=== PATIENT | male | born 1950 | race Caucasian/White ===

== ENCOUNTER 2017-04-18 10:54 | Emergency (ER) | payer OTHER ==
[~2017-04-18] VITALS: Ht 170.2 cm; Wt 77.1 kg
[~2017-04-18 10:54] MED LIST: ALBU90OI; ALBU90OI INH; ALBU90OI6; ALBU90OI6 INH; AMLO5; ASPI325; ASPI81CH PO; ASPI81EC PO; ATOR10; ATOR80 PO; AZIT250 PO; Adult Low Dose81 MG PO; CEPH500 PO; CIPR500 PO; CITA20; CLOP75; CLOP75 PO; CODACE30 PO; Crestor20 MG PO; DOXA2 PO; DOXA4 PO; ERYT.5TO LEFTEYE; FINA5 PO; FISH1000 PO; GABA300 PO; GEMF600 PO; HYDACE5; HYDACE5 PO; HYDACE5325 PO; IBUP800; IRON PO; IRON150C PO; LAMI150 PO; LAMZIDT PO; LANS15EC PO; METF500; METO25 PO; METO25ER PO; METO50 PO; METO50ER; METO50ER PO; MULVITMINF PO; NADO20; Norco 5-325 Ta1 EACH PO; OMEP20ER PO; OXYACE5T PO; OXYACEL PO; PANT40 PO; PRAV20; PRAV20 PO; PROCODE120 PO; PROM25; PROM25 PO; Prednisone20 MG PO; RANI150 PO; RITLOP; RITLOP PO; ROSU10TA PO; RXHYD5325 PO; TEMA15; TRIUMEQ TABLET1 EACH PO; Vibramycin100 MG PO; WARF1; WARF10 PO; WARF4 PO; WARF5; WARF5 PO; WARF7.5 PO; WARF7.5 UD; ZOLP10 PO; Zithromax250 MG PO; [UNRECOGNIZED DRUG - OTHER] PO; [UNRECOGNIZED DRUG - REMARK]
[2017-04-18] MEDS ORDERED: ROSU5 PO (11:18)
[2017-04-18] MEDS ORDERED: ASPI81CH PO (11:19)
[2017-04-18 11:23] LABS: BASOPHILS ABSOLUTE AUTO 0.03 K/mm3 (0.00-0.23); BASOPHILS PERCENT AUTO 1 % (0-2); EOSINOPHILS ABSOLUTE AUTO 0.12 K/mm3 (0.00-0.68); EOSINOPHILS PERCENT AUTO 3 % (0-6); Hematocrit 46.1 % (37.0-53.0); Hemoglobin 16.2 g/dL (13.5-17.5); IMMATURE GRAN ABSOLUTE AUTO 0.01 K/mm3 (0.00-0.10); IMMATURE GRAN PERCENT AUTO 0 % (0-1); LYMPHOCYTES ABSOLUTE AUTO 1.04 K/mm3 (0.84-5.20); LYMPHOCYTES PERCENT AUTO 24 % (21-46); MONOCYTES PERCENT AUTO 14 % (4-13); Mean Corpuscular HGB 32.2 pg (26.0-34.0); Mean Corpuscular HGB Conc 35.1 g/dL (31.5-36.5); Mean Corpuscular Volume 92 fL (80-100); Mean Platelet Volume 9.9 fL (9.1-12.4); NEUTROPHILS ABSOLUTE AUTO 2.63 K/mm3 (1.96-9.15); NEUTROPHILS PERCENT AUTO 59 % (41-73); Platelet Count 132 K/mm3 (150-400); RDW Coefficient Variation 12.2 % (11.7-14.2); Red Blood Cell Count 5.03 M/mm3 (4.30-5.90); White Blood Cell Count 4.43 K/mm3 (4.00-11.30)
[2017-04-18 11:42] LABS: Alanine Aminotransfer (ALT/SGP 24 U/L (12-78); Albumin, Blood 4.2 g/dL (3.4-5.0); Albumin/Globulin Ratio 1.2 (0.8-1.8); Alk Phos 74 U/L (50-136); Anion Gap 11 mmol/L (6-16); Aspartate Aminotrans (AST/SGOT 37 U/L (12-37); Bilirubin, Total 0.6 mg/dL (0.1-1.0); Blood Urea Nitrogen 14 mg/dL (8-24); Bun/Creatinine Ratio 14.2 (12.0-20.0); CO2, Blood 24 mmol/L (21-32); Chloride, Blood 105 mmol/L (98-108); Creatinine, Blood 0.99 mg/dL (0.60-1.20); Globulin, Blood 3.5 g/dL (2.2-4.0); Glomerular Filtration Rate >60 (60-); Glucose, Blood 115 mg/dL (70-99); Potassium, Blood 3.4 mmol/L (3.5-5.5); Sodium, Blood 140 mmol/L (136-145); Total Protein, Blood 7.7 g/dL (6.4-8.2); Troponin I <0.015 ng/mL (0.000-0.040)
[2017-04-18] MEDS ORDERED: Doxycycline Hy100 MG PO (12:12)
[2017-12-06] MEDS ORDERED: TRIUMEQ TABLET1 EACH PO (18:43)
[2017-12-06] MEDS ORDERED: Coumadin5 MG PO (22:42)
[2017-12-07] MEDS ORDERED: ALBU90OI6 INH (13:01)
== END 2017-04-18 12:52 | disposition home or self-care (01) ==
LOC: ER 10:54
PROVIDERS: Emergency Medicine
DX: J44.1 Chronic obstructive pulmonary disease with (acute) exacerbation (principal); I25.2 Old myocardial infarction; I10 Essential (primary) hypertension; E11.9 Type 2 diabetes mellitus without complications; I48.91 Unspecified atrial fibrillation; Z88.2 Allergy status to sulfonamides; Z88.8 Allergy status to other drugs, medicaments and biological substances; Z79.01 Long term (current) use of anticoagulants; Z79.82 Long term (current) use of aspirin; Z90.49 Acquired absence of other specified parts of digestive tract; Z95.1 Presence of aortocoronary bypass graft
CPT/HCPCS: 36415; 71046; 80053; 84484; 85025; 93005; 93010; 99284

== ENCOUNTER 2017-05-30 20:44 | Emergency (ER) | payer OTHER ==
[~2017-05-30] VITALS: Ht 170.2 cm; Wt 74.8 kg
[~2017-05-30 20:44] MED LIST changes: +Doxycycline Hy100 MG PO; +ROSU5 PO
[2017-12-06] MEDS ORDERED: TRIUMEQ TABLET1 EACH PO (18:43)
[2017-12-06] MEDS ORDERED: Coumadin5 MG PO (22:42)
[2017-12-07] MEDS ORDERED: ALBU90OI6 INH (13:01)
== END 2017-05-30 22:00 | disposition home or self-care (01) ==
LOC: ER 20:44
DX: M25.461 Effusion, right knee (principal); I25.2 Old myocardial infarction; I10 Essential (primary) hypertension; E11.9 Type 2 diabetes mellitus without complications; I48.91 Unspecified atrial fibrillation; F17.210 Nicotine dependence, cigarettes, uncomplicated; Z88.2 Allergy status to sulfonamides; Z88.8 Allergy status to other drugs, medicaments and biological substances; Z79.899 Other long term (current) drug therapy; Z79.01 Long term (current) use of anticoagulants; Z79.82 Long term (current) use of aspirin; X58.XXXA Exposure to other specified factors, initial encounter; Y93.64 Activity, baseball
CPT/HCPCS: 73562-LT; 99283

== ENCOUNTER 2018-03-19 11:21 | Emergency (ER) | payer OTHER ==
[~2018-03-19] VITALS: Ht 170.2 cm; Wt 77.1 kg
[~2018-03-19 11:21] MED LIST changes: +Coumadin5 MG PO
[2018-03-19 12:06] LABS: BASOPHILS ABSOLUTE AUTO 0.03 K/mm3 (0.00-0.23); BASOPHILS PERCENT AUTO 0 % (0-2); EOSINOPHILS ABSOLUTE AUTO 0.05 K/mm3 (0.00-0.68); EOSINOPHILS PERCENT AUTO 1 % (0-6); Hematocrit 45.5 % (37.0-53.0); Hemoglobin 15.8 g/dL (13.5-17.5); IMMATURE GRAN ABSOLUTE AUTO 0.03 K/mm3 (0.00-0.10); IMMATURE GRAN PERCENT AUTO 0 % (0-1); LYMPHOCYTES ABSOLUTE AUTO 1.11 K/mm3 (0.84-5.20); LYMPHOCYTES PERCENT AUTO 13 % (21-46); MONOCYTES ABSOLUTE AUTO 0.75 K/mm3 (0.16-1.47); MONOCYTES PERCENT AUTO 9 % (4-13); Mean Corpuscular HGB 32.8 pg (26.0-34.0); Mean Corpuscular HGB Conc 34.7 g/dL (31.5-36.5); Mean Corpuscular Volume 94 fL (80-100); Mean Platelet Volume 9.7 fL (9.1-12.4); NEUTROPHILS PERCENT AUTO 77 % (41-73); Platelet Count 131 K/mm3 (150-400); Red Blood Cell Count 4.82 M/mm3 (4.30-5.90); White Blood Cell Count 8.67 K/mm3 (4.00-11.30)
[2018-03-19 12:23] LABS: Alanine Aminotransfer (ALT/SGP 14 U/L (12-78); Albumin, Blood 3.8 g/dL (3.4-5.0); Albumin/Globulin Ratio 1.1 (0.8-1.8); Alk Phos 72 U/L (50-136); Anion Gap 9 mmol/L (6-16); Aspartate Aminotrans (AST/SGOT 17 U/L (12-37); Bilirubin, Total 0.8 mg/dL (0.1-1.0); Blood Urea Nitrogen 13 mg/dL (8-24); Bun/Creatinine Ratio 14.5 (12.0-20.0); CO2, Blood 25 mmol/L (21-32); Calcium, Blood 9.1 mg/dL (8.5-10.1); Chloride, Blood 105 mmol/L (98-108); Globulin, Blood 3.6 g/dL (2.2-4.0); Glomerular Filtration Rate >60 (60-); Glucose, Blood 126 mg/dL (70-99); Potassium, Blood 3.5 mmol/L (3.5-5.5); Sodium, Blood 139 mmol/L (136-145); Total Protein, Blood 7.4 g/dL (6.4-8.2)
[2018-03-19 12:32] LABS: Influenza A Negative (NEGATIVE); Influenza B Negative (NEGATIVE)
[2018-03-19] MEDS ORDERED: Vibramycin100 MG PO (12:51)
== END 2018-03-19 13:26 | disposition home or self-care (01) ==
LOC: ER 11:21
PROVIDERS: Emergency Medicine
DX: J20.9 Acute bronchitis, unspecified (principal); J42 Unspecified chronic bronchitis; F17.210 Nicotine dependence, cigarettes, uncomplicated; B20 Human immunodeficiency virus [HIV] disease; E11.9 Type 2 diabetes mellitus without complications; I10 Essential (primary) hypertension; I25.2 Old myocardial infarction; E78.5 Hyperlipidemia, unspecified; J43.9 Emphysema, unspecified; Z95.1 Presence of aortocoronary bypass graft; Z88.2 Allergy status to sulfonamides; Z88.8 Allergy status to other drugs, medicaments and biological substances; Z79.82 Long term (current) use of aspirin; Z79.01 Long term (current) use of anticoagulants; Z79.899 Other long term (current) drug therapy
CPT/HCPCS: 36415; 71046; 80053; 85025; 87804; 93005; 93010; 96361; 96374; 99284-25; J2930; J7030

== ENCOUNTER 2018-04-22 17:26 | Emergency (ER) | payer OTHER ==
[~2018-04-22] VITALS: Ht 170.2 cm; Wt 77.1 kg
[2018-04-22 18:01] LABS: BASOPHILS ABSOLUTE AUTO 0.03 K/mm3 (0.00-0.23); BASOPHILS PERCENT AUTO 0 % (0-2); EOSINOPHILS ABSOLUTE AUTO 0.05 K/mm3 (0.00-0.68); EOSINOPHILS PERCENT AUTO 1 % (0-6); Hematocrit 48.3 % (37.0-53.0); Hemoglobin 16.7 g/dL (13.5-17.5); IMMATURE GRAN ABSOLUTE AUTO 0.02 K/mm3 (0.00-0.10); IMMATURE GRAN PERCENT AUTO 0 % (0-1); LYMPHOCYTES ABSOLUTE AUTO 2.04 K/mm3 (0.84-5.20); LYMPHOCYTES PERCENT AUTO 30 % (21-46); MONOCYTES ABSOLUTE AUTO 0.54 K/mm3 (0.16-1.47); MONOCYTES PERCENT AUTO 8 % (4-13); Mean Corpuscular HGB 31.9 pg (26.0-34.0); Mean Corpuscular HGB Conc 34.6 g/dL (31.5-36.5); Mean Corpuscular Volume 92 fL (80-100); Mean Platelet Volume 9.5 fL (9.1-12.4); NEUTROPHILS ABSOLUTE AUTO 4.03 K/mm3 (1.96-9.15); NEUTROPHILS PERCENT AUTO 60 % (41-73); Platelet Count 177 K/mm3 (150-400); RDW Coefficient Variation 11.9 % (11.7-14.2); RDW Standard Deviation 40.2 fL (35.1-46.3); Red Blood Cell Count 5.24 M/mm3 (4.30-5.90); White Blood Cell Count 6.71 K/mm3 (4.00-11.30)
[2018-04-22 18:31] LABS: Alanine Aminotransfer (ALT/SGP 20 U/L (12-78); Albumin, Blood 4.2 g/dL (3.4-5.0); Albumin/Globulin Ratio 1.2 (0.8-1.8); Alk Phos 68 U/L (50-136); Anion Gap 11 mmol/L (6-16); Aspartate Aminotrans (AST/SGOT 24 U/L (12-37); Bilirubin, Total 0.9 mg/dL (0.1-1.0); Blood Urea Nitrogen 22 mg/dL (8-24); CO2, Blood 30 mmol/L (21-32); Calcium, Blood 9.4 mg/dL (8.5-10.1); Chloride, Blood 98 mmol/L (98-108); Globulin, Blood 3.6 g/dL (2.2-4.0); Glomerular Filtration Rate >60 (60-); Glucose, Blood 149 mg/dL (70-99); Sodium, Blood 139 mmol/L (136-145); Total Protein, Blood 7.8 g/dL (6.4-8.2)
[2018-04-22] MEDS ORDERED: Miralax17 GM PO (21:54)
[2018-04-22 22:36] LABS: International Normalized Ratio 3.6
== END 2018-04-22 22:26 | disposition home or self-care (01) ==
LOC: ER 17:26
PROVIDERS: Emergency Medicine; Physician Assistant
DX: K86.9 Disease of pancreas, unspecified (principal); K59.00 Constipation, unspecified; Z88.2 Allergy status to sulfonamides; Z88.8 Allergy status to other drugs, medicaments and biological substances; Z79.899 Other long term (current) drug therapy; Z79.01 Long term (current) use of anticoagulants; Z79.82 Long term (current) use of aspirin; I10 Essential (primary) hypertension; I25.2 Old myocardial infarction; E11.9 Type 2 diabetes mellitus without complications; I48.91 Unspecified atrial fibrillation; F17.210 Nicotine dependence, cigarettes, uncomplicated
CPT/HCPCS: 36415; 74177; 80053; 83690; 85025; 85610; 96360; 96361; 99284-25; J7030; Q9967

== ENCOUNTER 2018-04-30 17:38 | Inpatient (IN) | payer OTHER ==
[~2018-04-30] VITALS: Ht 170.2 cm; Wt 66.5 kg
[~2018-04-30 17:38] MED LIST changes: +Miralax17 GM PO
[2018-04-30 18:14] LABS: BASOPHILS ABSOLUTE AUTO 0.05 K/mm3 (0.00-0.23); BASOPHILS PERCENT AUTO 1 % (0-2); EOSINOPHILS ABSOLUTE AUTO 0.08 K/mm3 (0.00-0.68); EOSINOPHILS PERCENT AUTO 1 % (0-6); Hematocrit 49.8 % (37.0-53.0); Hemoglobin 17.5 g/dL (13.5-17.5); IMMATURE GRAN ABSOLUTE AUTO 0.01 K/mm3 (0.00-0.10); IMMATURE GRAN PERCENT AUTO 0 % (0-1); LYMPHOCYTES ABSOLUTE AUTO 2.18 K/mm3 (0.84-5.20); LYMPHOCYTES PERCENT AUTO 29 % (21-46); MONOCYTES ABSOLUTE AUTO 0.56 K/mm3 (0.16-1.47); MONOCYTES PERCENT AUTO 8 % (4-13); Mean Corpuscular HGB 31.9 pg (26.0-34.0); Mean Corpuscular HGB Conc 35.1 g/dL (31.5-36.5); Mean Corpuscular Volume 91 fL (80-100); Mean Platelet Volume 9.8 fL (9.1-12.4); NEUTROPHILS ABSOLUTE AUTO 4.63 K/mm3 (1.96-9.15); NEUTROPHILS PERCENT AUTO 62 % (41-73); Platelet Count 175 K/mm3 (150-400); RDW Coefficient Variation 11.6 % (11.7-14.2); RDW Standard Deviation 38.8 fL (35.1-46.3); Red Blood Cell Count 5.49 M/mm3 (4.30-5.90); White Blood Cell Count 7.51 K/mm3 (4.00-11.30)
[2018-04-30 18:33] LABS: Albumin, Blood 4.2 g/dL (3.4-5.0); Albumin/Globulin Ratio 1.1 (0.8-1.8); Bilirubin, Total 1.1 mg/dL (0.1-1.0); Bun/Creatinine Ratio 14.6 (12.0-20.0); Calcium, Blood 9.6 mg/dL (8.5-10.1); Creatinine, Blood 1.37 mg/dL (0.60-1.20); Globulin, Blood 3.9 g/dL (2.2-4.0); Total Protein, Blood 8.1 g/dL (6.4-8.2)
[2018-04-30 20:15] LABS: Prothrombin Time Results 54.5 Sec (9.7-11.5)
[2018-04-30 20:20] LABS: International Normalized Ratio 6.06
[2018-05-01] MEDS ORDERED: ROSU5 PO (00:27)
[2018-05-01] MEDS ORDERED: WARF5 PO (00:33)
[2018-05-01] MEDS ORDERED: WARF7.5 PO (00:35)
--- NOTE | 2018-05-01 02:51 | NUR ---
05/01/18 0250 PT SLEEPING WELL WITHOUT S/S. PT WAS UNABLE TO TOLERATE K RIDERS AT 50 ML/HOUR. RN HAD TO DECREASE RATE TO 30 ML/HOUR.
[2018-05-01 05:45] LABS: BASOPHILS ABSOLUTE AUTO 0.02 K/mm3 (0.00-0.23); BASOPHILS PERCENT AUTO 0 % (0-2); EOSINOPHILS ABSOLUTE AUTO 0.11 K/mm3 (0.00-0.68); EOSINOPHILS PERCENT AUTO 2 % (0-6); Hematocrit 40.8 % (37.0-53.0); Hemoglobin 14.3 g/dL (13.5-17.5); IMMATURE GRAN ABSOLUTE AUTO 0.01 K/mm3 (0.00-0.10); IMMATURE GRAN PERCENT AUTO 0 % (0-1); LYMPHOCYTES ABSOLUTE AUTO 2.89 K/mm3 (0.84-5.20); LYMPHOCYTES PERCENT AUTO 44 % (21-46); MONOCYTES ABSOLUTE AUTO 0.55 K/mm3 (0.16-1.47); MONOCYTES PERCENT AUTO 8 % (4-13); Mean Corpuscular HGB 31.8 pg (26.0-34.0); Mean Corpuscular Volume 91 fL (80-100); Mean Platelet Volume 9.6 fL (9.1-12.4); NEUTROPHILS ABSOLUTE AUTO 3.01 K/mm3 (1.96-9.15); NEUTROPHILS PERCENT AUTO 46 % (41-73); Platelet Count 163 K/mm3 (150-400); RDW Coefficient Variation 11.8 % (11.7-14.2); RDW Standard Deviation 39.1 fL (35.1-46.3); Red Blood Cell Count 4.49 M/mm3 (4.30-5.90); White Blood Cell Count 6.59 K/mm3 (4.00-11.30)
[2018-05-01 06:17] LABS: Anion Gap 7 mmol/L (6-16); Blood Urea Nitrogen 17 mg/dL (8-24); Bun/Creatinine Ratio 14.9 (12.0-20.0); CO2, Blood 35 mmol/L (21-32); Calcium, Blood 8.5 mg/dL (8.5-10.1); Chloride, Blood 98 mmol/L (98-108); Creatinine, Blood 1.14 mg/dL (0.60-1.20); Glomerular Filtration Rate >60 (60-); Glucose, Blood 89 mg/dL (70-99); Magnesium, Blood 1.8 mg/dL (1.6-2.4); Phosphorus, Blood 3.5 mg/dL (2.5-4.9); Potassium, Blood 3.3 mmol/L (3.5-5.5); Sodium, Blood 140 mmol/L (136-145)
[2018-05-01 06:23] LABS: Prothrombin Time Results 49.4 Sec (9.7-11.5)
[2018-05-01 06:30] LABS: International Normalized Ratio 5.44
--- NOTE | 2018-05-01 07:56 | NUR ---
05/01/18 0645 PT SLEPT WELL AFTER ADMISSION PROCESS. NO ACTIVE BLEEDING NOTED. VITALS STABLE. NO VOIDING YET BUT ABDOMEN SOFT AND DENIES NEED TO VOID. DENIES PAIN OR NAUSEA THIS SHIFT.
--- NOTE | 2018-05-01 18:40 | NUR ---
SHIFT SUMMARY PT UP TO BATHROOM INDEPENDENTLY TODAY. DENIES NAUSEA. MRI SCREENING FORM COMPLETED AND FAXED TO IMAGING. DR. TREVIZO TO BE HERE LATER THIS EVENING AND PT AWARE. FAMILY IN TO VISIT FOR SHORT TIME THIS AFTERNOON. NO ACUTE CHANGE TODAY.
[2018-05-02 05:02] LABS: BASOPHILS ABSOLUTE AUTO 0.03 K/mm3 (0.00-0.23); BASOPHILS PERCENT AUTO 1 % (0-2); EOSINOPHILS ABSOLUTE AUTO 0.12 K/mm3 (0.00-0.68); EOSINOPHILS PERCENT AUTO 2 % (0-6); Hematocrit 40.4 % (37.0-53.0); IMMATURE GRAN ABSOLUTE AUTO 0.01 K/mm3 (0.00-0.10); IMMATURE GRAN PERCENT AUTO 0 % (0-1); LYMPHOCYTES ABSOLUTE AUTO 2.35 K/mm3 (0.84-5.20); LYMPHOCYTES PERCENT AUTO 45 % (21-46); MONOCYTES ABSOLUTE AUTO 0.41 K/mm3 (0.16-1.47); MONOCYTES PERCENT AUTO 8 % (4-13); Mean Corpuscular HGB 32.2 pg (26.0-34.0); Mean Corpuscular HGB Conc 34.7 g/dL (31.5-36.5); Mean Corpuscular Volume 93 fL (80-100); Mean Platelet Volume 9.3 fL (9.1-12.4); NEUTROPHILS ABSOLUTE AUTO 2.31 K/mm3 (1.96-9.15); NEUTROPHILS PERCENT AUTO 44 % (41-73); Platelet Count 142 K/mm3 (150-400); RDW Coefficient Variation 11.6 % (11.7-14.2); RDW Standard Deviation 39.6 fL (35.1-46.3); Red Blood Cell Count 4.35 M/mm3 (4.30-5.90); White Blood Cell Count 5.23 K/mm3 (4.00-11.30)
[2018-05-02 05:20] LABS: International Normalized Ratio 1.92; Prothrombin Time Results 19.2 Sec (9.7-11.5)
[2018-05-02 05:26] LABS: Alpha Feto Protein, Tumor Mkr 4.1 ng/mL (0.0-8.0); Cancer Antigen 19-9 552.5 U/mL (2.0-37.0)
[2018-05-02 05:39] LABS: Alanine Aminotransfer (ALT/SGP 14 U/L (12-78); Albumin, Blood 2.9 g/dL (3.4-5.0); Alk Phos 58 U/L (50-136); Anion Gap 7 mmol/L (6-16); Aspartate Aminotrans (AST/SGOT 19 U/L (12-37); Bilirubin, Total 1.4 mg/dL (0.1-1.0); Blood Urea Nitrogen 11 mg/dL (8-24); Bun/Creatinine Ratio 11.1 (12.0-20.0); CO2, Blood 31 mmol/L (21-32); Calcium, Blood 8.5 mg/dL (8.5-10.1); Chloride, Blood 105 mmol/L (98-108); Globulin, Blood 2.9 g/dL (2.2-4.0); Glomerular Filtration Rate >60 (60-); Glucose, Blood 93 mg/dL (70-99); Potassium, Blood 3.3 mmol/L (3.5-5.5); Sodium, Blood 143 mmol/L (136-145)
[2018-05-02 05:40] LABS: Total Protein, Blood 5.8 g/dL (6.4-8.2)
--- NOTE | 2018-05-02 06:45 | NUR ---
05/02/18 0530 SLEPT MOST OF SHIFT. MEDICATED ONCE FOR NAUSEA. HAS ONLY SLIGHT GENERAL ABDOMINAL "TENDERNESS" TO TOUCH. VITALS STABLE.
--- NOTE | 2018-05-02 17:23 | NUR ---
THIS PT HAS A 20G IV IN HIS RIGHT WRIST WITH LR RUNNING AT 100/HR. HE IS INDEPENDENT IN HIS ROOM. HE WENT FOR AN MRI THIS AFTERNOON. HE IS WATER AND CIE CHIPS AFTER BREAKFAST AND NPO AT 1300 FOR EGD TOMORROW AFTERNOON, 05/03/18. NO ACUTE CHANGES THIS SHIFT. WILL CONTINUE TO MONITOR.
--- NOTE | 2018-05-03 04:02 | NUR ---
SHIFT SUMMARY PT HAS DENIED NEEDS FOR MOST OF THE NIGHT. PT STATES HE'S ALWAYS NAUSEOUS. BUT DECLINES ANYTHING FOR NAUSEA. HE STATES THAT HE HAS BEEN TRYING TO THROW UP ALL DAY AND EVENING IN ORDER TO RELIEVE PRESSURE. PT REPORTED TO ME THAT HE HAD SOME EMESIS THIS AM. PT CONTINUES TO DECLINE ANYTHING FOR NAUSEA AT THIS TIME. LR INFUSING PER ORDERS. PT HAS BEEN UP AND INDEPENDENT IN THE ROOM. PLAN IS FOR EGD TODAY. PT AWARE OF POC. NO ACUTE CHANGES. WILL CONTINUE TO MONITOR AND REPORT TO ONCOMING RN.
[2018-05-03 05:06] LABS: Hematocrit 39.7 % (37.0-53.0); Mean Corpuscular HGB 32.1 pg (26.0-34.0); Mean Corpuscular HGB Conc 35.3 g/dL (31.5-36.5); Mean Corpuscular Volume 91 fL (80-100); Mean Platelet Volume 9.4 fL (9.1-12.4); Platelet Count 143 K/mm3 (150-400); RDW Coefficient Variation 11.5 % (11.7-14.2); RDW Standard Deviation 38.7 fL (35.1-46.3); Red Blood Cell Count 4.36 M/mm3 (4.30-5.90); White Blood Cell Count 5.58 K/mm3 (4.00-11.30)
[2018-05-03 05:25] LABS: Alanine Aminotransfer (ALT/SGP 13 U/L (12-78); Albumin, Blood 3.1 g/dL (3.4-5.0); Alk Phos 58 U/L (50-136); Anion Gap 6 mmol/L (6-16); Aspartate Aminotrans (AST/SGOT 20 U/L (12-37); Bilirubin, Total 1.2 mg/dL (0.1-1.0); Blood Urea Nitrogen 10 mg/dL (8-24); Bun/Creatinine Ratio 10.4 (12.0-20.0); CO2, Blood 30 mmol/L (21-32); Calcium, Blood 8.3 mg/dL (8.5-10.1); Chloride, Blood 105 mmol/L (98-108); Creatinine, Blood 0.96 mg/dL (0.60-1.20); Glomerular Filtration Rate >60 (60-); Glucose, Blood 95 mg/dL (70-99); Potassium, Blood 3.3 mmol/L (3.5-5.5); Sodium, Blood 141 mmol/L (136-145); Total Protein, Blood 6.1 g/dL (6.4-8.2)
[2018-05-03 05:26] LABS: International Normalized Ratio 1.5; Prothrombin Time Results 15.3 Sec (9.7-11.5)
--- NOTE | 2018-05-03 10:31 | NUR ---
Patient gave nursing specialist permission to provide care for 05/03/2018.
--- NOTE | 2018-05-03 15:07 | NUR ---
CALLED REPORT IN TO [facility] NURSE, FAN SANCHEZ AT 1500. PT IS DRESSED AND READY FOR DISCHARGE. SUNRISE TAXI IS HERE FOR PICKUP.
--- NOTE | 2018-05-03 16:47 | NUR ---
PT TRANSPORTED TO [facility]. AGREES WITH PLANNED PROCEDURE. LUNG SOUNS CLEAR, BUT DIMINISHED.
--- NOTE | 2018-05-03 17:14 | NUR ---
05/03/18 1714 Easton Toscano PATIENT DETERMINED TO BE ASA APPROPRIATE FOR PROPOFOL SEDATION PRIOR TO START OF PROCEDURE BY . 3-LEAD EKG REVIEWED WITH PHYSICIAN PRIOR TO START OF PROCEDURE.History, Chart, Medications and Allergies reviewed before start of procedure.MONITOR INTACT WITH CONTINUOUS PULSE OXIMETRY AND INTERMITTENT BP.O2 VIA N/C INTACT THROUGHOUT SEDATION/PROCEDURE.Bite Block Placed
[2018-05-04 05:23] LABS: BASOPHILS ABSOLUTE AUTO 0.04 K/mm3 (0.00-0.23); BASOPHILS PERCENT AUTO 1 % (0-2); EOSINOPHILS ABSOLUTE AUTO 0.25 K/mm3 (0.00-0.68); EOSINOPHILS PERCENT AUTO 5 % (0-6); Hematocrit 40.1 % (37.0-53.0); Hemoglobin 13.9 g/dL (13.5-17.5); IMMATURE GRAN ABSOLUTE AUTO 0.01 K/mm3 (0.00-0.10); IMMATURE GRAN PERCENT AUTO 0 % (0-1); LYMPHOCYTES ABSOLUTE AUTO 2.03 K/mm3 (0.84-5.20); LYMPHOCYTES PERCENT AUTO 39 % (21-46); MONOCYTES ABSOLUTE AUTO 0.39 K/mm3 (0.16-1.47); MONOCYTES PERCENT AUTO 8 % (4-13); Mean Corpuscular HGB 32.3 pg (26.0-34.0); Mean Corpuscular HGB Conc 34.7 g/dL (31.5-36.5); Mean Corpuscular Volume 93 fL (80-100); Mean Platelet Volume 9.8 fL (9.1-12.4); NEUTROPHILS ABSOLUTE AUTO 2.51 K/mm3 (1.96-9.15); NEUTROPHILS PERCENT AUTO 48 % (41-73); Platelet Count 130 K/mm3 (150-400); RDW Coefficient Variation 11.4 % (11.7-14.2); RDW Standard Deviation 38.5 fL (35.1-46.3); Red Blood Cell Count 4.31 M/mm3 (4.30-5.90); White Blood Cell Count 5.23 K/mm3 (4.00-11.30)
[2018-05-04 06:09] LABS: Alanine Aminotransfer (ALT/SGP 13 U/L (12-78); Albumin, Blood 3.2 g/dL (3.4-5.0); Albumin/Globulin Ratio 1.2 (0.8-1.8); Alk Phos 59 U/L (50-136); Anion Gap 8 mmol/L (6-16); Aspartate Aminotrans (AST/SGOT 22 U/L (12-37); Bilirubin, Total 1.4 mg/dL (0.1-1.0); Blood Urea Nitrogen 12 mg/dL (8-24); Bun/Creatinine Ratio 11.2 (12.0-20.0); CO2, Blood 29 mmol/L (21-32); Calcium, Blood 8.6 mg/dL (8.5-10.1); Chloride, Blood 106 mmol/L (98-108); Creatinine, Blood 1.07 mg/dL (0.60-1.20); Globulin, Blood 2.7 g/dL (2.2-4.0); Glomerular Filtration Rate >60 (60-); Glucose, Blood 89 mg/dL (70-99); Potassium, Blood 3.3 mmol/L (3.5-5.5); Sodium, Blood 143 mmol/L (136-145); Total Protein, Blood 5.9 g/dL (6.4-8.2)
[2018-05-04] MEDS ORDERED: Acetaminophen325 M1 PO (12:13)
[2018-05-04] MEDS ORDERED: MORP15ER PO (12:14)
[2018-05-04] MEDS ORDERED: ONDA4ODT MM (12:14)
[2018-05-04] MEDS ORDERED: POTASSIUM CHLO20 MEQ PO (12:15)
[2018-05-04] MEDS ORDERED: PROC5 PO (12:15)
--- NOTE | 2018-05-04 14:25 | NUR ---
DISCHARGE THIS RN EXPLAINED DISCHARGE INSTRUCTIONS AND MEDICATIONS TO PT AND HE REPORTS HE UNDERSTANDS. IV REMOVED WITHOUT DIFFICULTY. MEDICATIONS FAXED TO [employer]. PT RECEIVED WRITTEN PRESCRIPTION FOR MORPHINE AND LAB ORDERS. PT TRANSFERRED TO PRIVATE VEHICLE VIA WHEELCHAIR BY JASPER. BELONGINGS WITH JASPER.
== END 2018-05-04 13:46 | disposition home or self-care (01) | DRG 436 ==
LOC: ER 17:38 → MEDS 17:39 → PCU 17:39 → ER 23:46 → MEDS 23:46
PROVIDERS: Emergency Medicine; Family Medicine; Internal Medicine; Internal Medicine Gastroenterology; Physician Assistant; ADMIT Internal Medicine
PROC: 0DB68ZX Excision of Stomach, Via Natural or Artificial Opening Endoscopic, Diagnostic (ICD-10-PCS; principal; 2018-05-03 16:00)
DX: C25.0 Malignant neoplasm of head of pancreas (principal); I69.351 Hemiplegia and hemiparesis following cerebral infarction affecting right dominant side; Z21 Asymptomatic human immunodeficiency virus [HIV] infection status; F17.210 Nicotine dependence, cigarettes, uncomplicated; I25.10 Atherosclerotic heart disease of native coronary artery without angina pectoris; I48.2 Chronic atrial fibrillation; T45.515A Adverse effect of anticoagulants, initial encounter; J44.9 Chronic obstructive pulmonary disease, unspecified; I25.2 Old myocardial infarction; Z79.01 Long term (current) use of anticoagulants; Z95.5 Presence of coronary angioplasty implant and graft; E87.6 Hypokalemia; I10 Essential (primary) hypertension; E11.9 Type 2 diabetes mellitus without complications; R63.4 Abnormal weight loss; G47.33 Obstructive sleep apnea (adult) (pediatric)
CPT/HCPCS: 36415; 74183; 80048; 80053; 82105; 82272; 83690; 83735; 84100; 85025; 85027; 85610; 85651; 85730; 86301; 88305; 88342; 93005; 93010; 94664; 94667; 94760; 96361; 96374; 96375; 96376; 98960; 99285-25; 99407; A9577; C9113; G0378; J2270; J2405; J2550; J3430; J3480; J7120

== ENCOUNTER 2018-05-05 22:12 | Inpatient (IN) | payer OTHER ==
[~2018-05-05] VITALS: Ht 170.2 cm; Wt 67.8 kg
[~2018-05-05 22:12] MED LIST changes: +Acetaminophen325 M1 PO; +MORP15ER PO; +ONDA4ODT MM; +POTASSIUM CHLO20 MEQ PO; +PROC5 PO
[2018-05-05 23:03] LABS: BASOPHILS ABSOLUTE AUTO 0.02 K/mm3 (0.00-0.23); BASOPHILS PERCENT AUTO 0 % (0-2); EOSINOPHILS ABSOLUTE AUTO 0.05 K/mm3 (0.00-0.68); EOSINOPHILS PERCENT AUTO 1 % (0-6); Hematocrit 47.8 % (37.0-53.0); IMMATURE GRAN ABSOLUTE AUTO 0.01 K/mm3 (0.00-0.10); IMMATURE GRAN PERCENT AUTO 0 % (0-1); LYMPHOCYTES ABSOLUTE AUTO 1.78 K/mm3 (0.84-5.20); LYMPHOCYTES PERCENT AUTO 25 % (21-46); MONOCYTES ABSOLUTE AUTO 0.63 K/mm3 (0.16-1.47); MONOCYTES PERCENT AUTO 9 % (4-13); Mean Corpuscular HGB 32.3 pg (26.0-34.0); Mean Corpuscular HGB Conc 35.6 g/dL (31.5-36.5); Mean Corpuscular Volume 91 fL (80-100); NEUTROPHILS ABSOLUTE AUTO 4.66 K/mm3 (1.96-9.15); NEUTROPHILS PERCENT AUTO 65 % (41-73); Platelet Count 191 K/mm3 (150-400); RDW Coefficient Variation 11.6 % (11.7-14.2); RDW Standard Deviation 38.5 fL (35.1-46.3); Red Blood Cell Count 5.27 M/mm3 (4.30-5.90); White Blood Cell Count 7.15 K/mm3 (4.00-11.30)
[2018-05-05 23:18] LABS: International Normalized Ratio 1.26; Prothrombin Time Results 13.1 Sec (9.7-11.5)
[2018-05-05 23:20] LABS: Albumin, Blood 4.3 g/dL (3.4-5.0); Albumin/Globulin Ratio 1.2 (0.8-1.8); Bilirubin, Total 1.2 mg/dL (0.1-1.0); Bun/Creatinine Ratio 8.6 (12.0-20.0); Calcium, Blood 9.9 mg/dL (8.5-10.1); Creatinine, Blood 2.55 mg/dL (0.60-1.20); Globulin, Blood 3.5 g/dL (2.2-4.0); Potassium, Blood 3.2 mmol/L (3.5-5.5); Total Protein, Blood 7.8 g/dL (6.4-8.2)
--- NOTE | 2018-05-06 05:05 | NUR ---
SHIFT SUMMARY PT ADMITTED WITH ARF. PT NAUSEATED UPON ARRIVAL, ZOFRAN GIVEN IVP. PT ALSO HAS IVF'S GOING WITHOUT DIFFICULTY. HAS HISTORY OF COPD AND WEARS OXYGEN AT NIGHT, ON AT 2L/NC. PT ALSO RECENTLY DIAGNOSED WITH PANCREATIC CANCER, C/O SOME ABDOMINAL TENDERNESS. HAS BEEN SLEEPING SINCE IV ZOFRAN, WILL CONTINUE TO MONITOR.
[2018-05-06 06:03] LABS: International Normalized Ratio 1.29; Prothrombin Time Results 13.4 Sec (9.7-11.5)
--- NOTE | 2018-05-06 09:47 | NUR ---
PATIENT DID NOT EAT BREAKFAST THIS SHIFT DUE TO BEING NPO AT THIS TIME.
--- NOTE | 2018-05-06 09:49 | NUR ---
0915 BLADDER SCAN WAS DONE AT 0915 AND WAS 75ML. WILL RE CHECK LATER THIS SHIFT. RN WAS NOTIFIED.
[2018-05-06 11:04] LABS: Hematocrit 39.9 % (37.0-53.0); Hemoglobin 13.8 g/dL (13.5-17.5); Mean Corpuscular HGB 32.4 pg (26.0-34.0); Mean Corpuscular HGB Conc 34.6 g/dL (31.5-36.5); Mean Platelet Volume 9.8 fL (9.1-12.4); Platelet Count 148 K/mm3 (150-400); RDW Coefficient Variation 11.9 % (11.7-14.2); RDW Standard Deviation 40.8 fL (35.1-46.3); Red Blood Cell Count 4.26 M/mm3 (4.30-5.90); White Blood Cell Count 6.19 K/mm3 (4.00-11.30)
[2018-05-06 11:22] LABS: Mean Corpuscular Volume 94 fL (80-100)
[2018-05-06 11:44] LABS: Albumin, Blood 3.2 g/dL (3.4-5.0); Albumin/Globulin Ratio 1.2 (0.8-1.8); Bilirubin, Total 1.1 mg/dL (0.1-1.0); Bun/Creatinine Ratio 13.1 (12.0-20.0); Creatinine, Blood 1.76 mg/dL (0.60-1.20); Globulin, Blood 2.6 g/dL (2.2-4.0); Potassium, Blood 3.5 mmol/L (3.5-5.5)
[2018-05-06 11:52] LABS: Calcium, Blood 7.9 mg/dL (8.5-10.1); Total Protein, Blood 5.8 g/dL (6.4-8.2)
[2018-05-06 17:14] LABS: Source, Urine Clean Catch
[2018-05-06 17:17] LABS: Blood, Urine Neg (Neg); Glucose Qualitative, Urine Neg (Neg); Ketones, Urine 3+ (Neg); Leukocyte Esterase, Urine 1+ (Neg); Nitrite, Urine Neg (Neg); Protein, Urine 2+ (Neg); Urobilinogen, Urine 1+ (Normal)
[2018-05-06 17:25] LABS: Appearance, Urine Clear (Clear); Color, Urine Yellow (P-Yellow)
[2018-05-06 17:26] LABS: Bilirubin, Urine 2+ (Neg)
[2018-05-06 17:27] LABS: Bacteria Mod /hpf; Red Blood Cells, Urine 0-2 /hpf (0-2); Squamous Epithelial Cells Not Seen /hpf (Few)
[2018-05-06 17:28] LABS: Mucus Mod (0-Heavy)
[2018-05-06 18:27] LABS: Bun/Creatinine Ratio 16.8 (12.0-20.0); Calcium, Blood 7.5 mg/dL (8.5-10.1); Creatinine, Blood 1.43 mg/dL (0.60-1.20); Potassium, Blood 3.4 mmol/L (3.5-5.5)
--- NOTE | 2018-05-06 19:17 | NUR ---
PT A/OX3,PLEASANT AND COOPERATIVE, PT IS UP IND IN HIS ROOM, THE PT APPEARS TO BE BREATHING EASILY ON RA, AT THIS TIME, THE PT WAS MEDICATED FOR BACK AND ABD PAIN X3 TODAY, PT WAS MEDICATED X 1 FOR NAUSEA THIS AM, FAMILY WAS IN TO SEE THE PT, CALL LIGHT IN REACH,
--- NOTE | 2018-05-07 04:57 | NUR ---
SHIFT SUMMARY PT HAS SLEPT WELL DURING THE NIGHT, HAS BEEN VOIDING IN SMALL AMOUNTS. IVF'S CONTINUE TO INFUSE W/O DIFFICULTY. OFFERS NO C/O'S. WILL CONTINUE TO MONITOR.
[2018-05-07 05:17] LABS: BASOPHILS ABSOLUTE AUTO 0.03 K/mm3 (0.00-0.23); BASOPHILS PERCENT AUTO 0 % (0-2); EOSINOPHILS ABSOLUTE AUTO 0.23 K/mm3 (0.00-0.68); EOSINOPHILS PERCENT AUTO 3 % (0-6); Hematocrit 38.2 % (37.0-53.0); Hemoglobin 13.1 g/dL (13.5-17.5); IMMATURE GRAN ABSOLUTE AUTO 0.02 K/mm3 (0.00-0.10); IMMATURE GRAN PERCENT AUTO 0 % (0-1); LYMPHOCYTES PERCENT AUTO 25 % (21-46); MONOCYTES PERCENT AUTO 9 % (4-13); Mean Corpuscular HGB 32.3 pg (26.0-34.0); Mean Corpuscular HGB Conc 34.3 g/dL (31.5-36.5); Mean Corpuscular Volume 94 fL (80-100); Mean Platelet Volume 10.4 fL (9.1-12.4); NEUTROPHILS PERCENT AUTO 63 % (41-73); Platelet Count 123 K/mm3 (150-400); RDW Coefficient Variation 11.9 % (11.7-14.2); RDW Standard Deviation 41.2 fL (35.1-46.3); Red Blood Cell Count 4.06 M/mm3 (4.30-5.90); White Blood Cell Count 6.88 K/mm3 (4.00-11.30)
[2018-05-07 05:29] LABS: International Normalized Ratio 1.21; Prothrombin Time Results 12.6 Sec (9.7-11.5)
[2018-05-07 05:57] LABS: Albumin, Blood 3.1 g/dL (3.4-5.0); Anion Gap 7 mmol/L (6-16); Blood Urea Nitrogen 26 mg/dL (8-24); Bun/Creatinine Ratio 21.1 (12.0-20.0); CO2, Blood 29 mmol/L (21-32); Calcium, Blood 7.9 mg/dL (8.5-10.1); Chloride, Blood 110 mmol/L (98-108); Creatinine, Blood 1.23 mg/dL (0.60-1.20); Glomerular Filtration Rate >60 (60-); Glucose, Blood 85 mg/dL (70-99); Phosphorus, Blood 2.6 mg/dL (2.5-4.9); Potassium, Blood 3.4 mmol/L (3.5-5.5); Sodium, Blood 146 mmol/L (136-145)
[2018-05-07 15:17] LABS: Anion Gap 8 mmol/L (6-16); Blood Urea Nitrogen 25 mg/dL (8-24); Bun/Creatinine Ratio 23.4 (12.0-20.0); CO2, Blood 28 mmol/L (21-32); Calcium, Blood 7.9 mg/dL (8.5-10.1); Chloride, Blood 110 mmol/L (98-108); Creatinine, Blood 1.07 mg/dL (0.60-1.20); Glomerular Filtration Rate >60 (60-); Glucose, Blood 75 mg/dL (70-99); Potassium, Blood 3.7 mmol/L (3.5-5.5); Sodium, Blood 146 mmol/L (136-145)
--- NOTE | 2018-05-07 16:08 | NUR ---
PT A/OX3, PLEASANT AND COOPERATIVE, THE PT IS UP IND TO THE BATHROOM, THE PT APPEARS TO BE BREATHING EASILY AT REST ON O2 @ 2L/MIN, THE PT WAS MEDICATED FOR PAIN T/O THE DAY, THE PT WAS MEDICATED FOR NAUSEA X2 SO FAR TODAY, THE PT DECLINED HIS CLEAR LIQUID DIET AT BREAKFAST AND LUNCH, THE PT WAS GIVEN A KCL RIDER THIS AFTERNOON AND TOLERATED IT WELL, MULTIPLE FAMILY HAS BEEN IN TO SEE THE PT, CALL LIGHT IN REACH, WILL CONTINUE TO MONITOR AND ASSESS FOR CHANGES
[2018-05-08 04:50] LABS: BASOPHILS ABSOLUTE AUTO 0.03 K/mm3 (0.00-0.23); BASOPHILS PERCENT AUTO 1 % (0-2); EOSINOPHILS ABSOLUTE AUTO 0.27 K/mm3 (0.00-0.68); EOSINOPHILS PERCENT AUTO 5 % (0-6); Hematocrit 36.7 % (37.0-53.0); Hemoglobin 12.2 g/dL (13.5-17.5); IMMATURE GRAN ABSOLUTE AUTO 0.02 K/mm3 (0.00-0.10); IMMATURE GRAN PERCENT AUTO 0 % (0-1); LYMPHOCYTES ABSOLUTE AUTO 1.87 K/mm3 (0.84-5.20); LYMPHOCYTES PERCENT AUTO 33 % (21-46); MONOCYTES ABSOLUTE AUTO 0.58 K/mm3 (0.16-1.47); MONOCYTES PERCENT AUTO 10 % (4-13); Mean Corpuscular HGB 31.3 pg (26.0-34.0); Mean Corpuscular HGB Conc 33.2 g/dL (31.5-36.5); Mean Corpuscular Volume 94 fL (80-100); Mean Platelet Volume 10.2 fL (9.1-12.4); NEUTROPHILS ABSOLUTE AUTO 2.93 K/mm3 (1.96-9.15); NEUTROPHILS PERCENT AUTO 51 % (41-73); Platelet Count 115 K/mm3 (150-400); RDW Coefficient Variation 11.9 % (11.7-14.2); RDW Standard Deviation 40.8 fL (35.1-46.3)
--- NOTE | 2018-05-08 05:04 | NUR ---
SHIFT SUMMARY PT HAVING DIARRHEA DURING THE NIGHT, TAKES SELF TO THE BATHROOM. IVF'S INFUSING WITHOUT DIFFICULTY AT 125ML/HR. MEDICATED X1 FOR PAIN DURING THE NIGHT. DENIES NAUSEA AT THIS POINT. WILL CONTINUE TO MONITOR.
[2018-05-08 05:05] LABS: International Normalized Ratio 1.38; Prothrombin Time Results 14.2 Sec (9.7-11.5)
[2018-05-08 05:20] LABS: Albumin, Blood 2.9 g/dL (3.4-5.0); Anion Gap 12 mmol/L (6-16); Blood Urea Nitrogen 23 mg/dL (8-24); CO2, Blood 23 mmol/L (21-32); Calcium, Blood 7.7 mg/dL (8.5-10.1); Chloride, Blood 108 mmol/L (98-108); Glomerular Filtration Rate >60 (60-); Glucose, Blood 62 mg/dL (70-99); Magnesium, Blood 1.3 mg/dL (1.6-2.4); Phosphorus, Blood 2.8 mg/dL (2.5-4.9); Potassium, Blood 3.3 mmol/L (3.5-5.5); Sodium, Blood 143 mmol/L (136-145)
--- NOTE | 2018-05-08 11:26 | NUR ---
CALLED CONSULT FOR DR. TOSHIA LAINEZ CALLED DR. LAINEZ'S OFFICE TO NOTIFY OF DR. QUINONES'S REQUESTED CONSULT FOR THIS PT AT 1127 HRS ON 05/08/18.
--- NOTE | 2018-05-08 11:44 | NUR ---
CALLED TO REQUEST GI CONSULT TO DR. TALAMANTES REQUESTED BY DR. QUINONES FOR "PANCREATIC MASS:UNABLE TO TOLERATE DIET" AT 1145 HRS ON 04/07/18.
--- NOTE | 2018-05-08 15:40 | NUR ---
SHIFT SUMMARY PT IS INDEPENDENT IN THE ROOM. PT STATED THAT HE IS HUNGRY TODAY, SO DR HAS ALLOWED HIM TO TRANSITION FROM CLEAR LIQUID TO FULL LIQUID DIET. I HAVE CALLED CONSULTS FOR DR. TALAMANTES (GI) AND DR. LAINEZ ORDERED IN REGARDS TO THIS PT'S PANCREATIC MASS. PT IS ON 2 LPM O2 VIA NC AT NIGHT, AT HOME WELL. PT HAS A HX OF PANCREATIC CANCER, HIV, HTN, COPD, CA, CVA, STENTS, AND QUAD BYPASS. PT WAS GIVEN IV MAGNESIUM AND IV POTASSIUM DUE TO LOW VALUES IN LAB DRAW. WILL CONTINUE TO MONITOR LABS. PT HAS TOLERATED FULL LIQUID FOOD WELL, NO COMPLAINTS OF NAUSEA OR DISCOMFORT. HE HAS FENTANYL AVAILABLE FOR BACK PAIN BUT HAS NOT REQUESTED IT.
--- NOTE | 2018-05-08 16:34 | NUR ---
DR LAINEZ ROUNDED ON PT ONCOLOGY CONSULT ARRIVED TO ASSESS PT STATUS RE: PANCREATIC CANCER. ORDERED CT SCAN W/CONTRAST OF PT'S CHEST TO RULE OUT METASTASIS OF PANCREATIC CANCER TO LUNGS. THIS IS IN ANTICIPATION OF TRANSFERING PT TO [facility] FOR PANCREATIC CANCER SURGERY/TREATMENTS TOMORROW, IF BEDS ARE AVAILABLE THERE.
--- NOTE | 2018-05-08 16:38 | NUR ---
PT STATUS PT DID STATE THAT HE HAD SEVERE BACK PAIN AT APPROX 1625 HRS. I DID ADMIN PAIN MEDICATION ORDERED. WILL REASSESS TO SEE IF EFFECTIVE.
[2018-05-09 04:50] LABS: Hematocrit 39.3 % (37.0-53.0); Hemoglobin 13.9 g/dL (13.5-17.5)
[2018-05-09 05:06] LABS: International Normalized Ratio 1.88; Prothrombin Time Results 18.8 Sec (9.7-11.5)
--- NOTE | 2018-05-09 05:11 | NUR ---
SHIFT SUMMARY. PT HAS SLEPT WITHOUT COMPLAINTS THROUGHOUT SHIFT. PT REPORTED NO PAIN OR DISCOMFORT. PT IS CURRENTLY SLEEPING AND BREATHING EASY. CALL LIGHT IN REACH AND BED IN LOW POSITION.
[2018-05-09 05:15] LABS: Anion Gap 13 mmol/L (6-16); Blood Urea Nitrogen 15 mg/dL (8-24); Bun/Creatinine Ratio 15.9 (12.0-20.0); CO2, Blood 25 mmol/L (21-32); Calcium, Blood 8.4 mg/dL (8.5-10.1); Chloride, Blood 103 mmol/L (98-108); Creatinine, Blood 0.95 mg/dL (0.60-1.20); Glomerular Filtration Rate >60 (60-); Glucose, Blood 69 mg/dL (70-99); Magnesium, Blood 1.6 mg/dL (1.6-2.4); Potassium, Blood 2.8 mmol/L (3.5-5.5); Sodium, Blood 141 mmol/L (136-145)
--- NOTE | 2018-05-09 12:13 | NUR ---
Patient gave this student nurse permission to access their medical records.
--- NOTE | 2018-05-09 16:46 | NUR ---
Pt declined pastoral care visits. Advised Mining Plant Operator services will remain available.
--- NOTE | 2018-05-09 16:46 | NUR ---
SHIFT SUMMARY STILL AWAITING A BED FOR TRANSFER TO [facility] FOR PANCREATIC CANCER SURGERY & TREATMENT. IT APPEARS THAT CT SCAN TO RULE OUT METASTASIS WAS CLEAR. PT VOMITING PROFUSELY TODAY, NO APPETITE. IV ZOFRAN INEFFECTIVE, SWITCHING TO COMPAZINE. PT AND FAMILY HAVE MANY QUESTIONS ABOUT THE TREATMENT TO BE DONE AT [facility], THE TRANSFER, AND IT'S TIMING. PT IS NOW NPO. PT HAS REQUIRED FENTANYL FOR BACK PAIN. HE HAS A NEW IV TO THE LEFT AC, BUT IT IS POSITIONAL AND OCCLUDES WHEN THE PT BENDS HIS ARM. I PROVIDED THE PT WITH SMOKING CESSATION MATERIAL, HE STATED THAT HE FELT HE WAS DONE SMOKING HE HAS BEEN IN THE HOSPITAL SO LONG NOW. PT IS INDEPENDENT IN THE ROOM, ON 2 LPM OF O2 VIA NC. HX: PANCREATIC CANCER, HIV, DIARRHEA, HTN, COPD, OR, CVA, STENTS, QUAD BIPASS.
[2018-05-10 05:22] LABS: International Normalized Ratio 2.69; Prothrombin Time Results 26.1 Sec (9.7-11.5)
--- NOTE | 2018-05-10 06:12 | NUR ---
SHIFT SUMMARY PT A/O. NO C/O OF N/V UNITL APPROX 0500. HE WAS ABLE TO SLEEP UP UNTIL THEN. C/O PAIN IN BACK AND MEDICATED PER EMAR. INDEPENDENT TO BA. POST BLADDER SCAN AT 0600 SHOWED ZERO. 1L O2 NC. NPO. CALL LIGHT IN REACH
[2018-05-10 10:08] LABS: BASOPHILS ABSOLUTE AUTO 0.04 K/mm3 (0.00-0.23); BASOPHILS PERCENT AUTO 1 % (0-2); EOSINOPHILS ABSOLUTE AUTO 0.22 K/mm3 (0.00-0.68); EOSINOPHILS PERCENT AUTO 4 % (0-6); Hematocrit 42.4 % (37.0-53.0); Hemoglobin 14.9 g/dL (13.5-17.5); IMMATURE GRAN ABSOLUTE AUTO 0.01 K/mm3 (0.00-0.10); IMMATURE GRAN PERCENT AUTO 0 % (0-1); LYMPHOCYTES ABSOLUTE AUTO 2.01 K/mm3 (0.84-5.20); LYMPHOCYTES PERCENT AUTO 33 % (21-46); MONOCYTES ABSOLUTE AUTO 0.56 K/mm3 (0.16-1.47); MONOCYTES PERCENT AUTO 9 % (4-13); Mean Corpuscular HGB 31.9 pg (26.0-34.0); Mean Corpuscular HGB Conc 35.1 g/dL (31.5-36.5); Mean Platelet Volume 10.5 fL (9.1-12.4); NEUTROPHILS ABSOLUTE AUTO 3.22 K/mm3 (1.96-9.15); NEUTROPHILS PERCENT AUTO 53 % (41-73); Platelet Count 154 K/mm3 (150-400); RDW Coefficient Variation 12.2 % (11.7-14.2); Red Blood Cell Count 4.67 M/mm3 (4.30-5.90); White Blood Cell Count 6.06 K/mm3 (4.00-11.30)
[2018-05-10 10:11] LABS: Mean Corpuscular Volume 91 fL (80-100)
[2018-05-10 10:27] LABS: Anion Gap 13 mmol/L (6-16); Blood Urea Nitrogen 16 mg/dL (8-24); Bun/Creatinine Ratio 17.6 (12.0-20.0); CO2, Blood 25 mmol/L (21-32); Calcium, Blood 8.6 mg/dL (8.5-10.1); Chloride, Blood 100 mmol/L (98-108); Creatinine, Blood 0.91 mg/dL (0.60-1.20); Glomerular Filtration Rate >60 (60-); Glucose, Blood 66 mg/dL (70-99); Potassium, Blood 2.7 mmol/L (3.5-5.5); Sodium, Blood 138 mmol/L (136-145)
--- NOTE | 2018-05-10 11:14 | NUR ---
PATIENT DID NOT EAT BREAKFAST THIS SHIFT DUE TO BEING NPO AT THIS TIME.
--- NOTE | 2018-05-10 14:17 | NUR ---
PATIENT DID NOT EAT LUNCH THIS SHIFT DUE TO BEING NPO AT THIS TIME.
--- NOTE | 2018-05-10 15:21 | NUR ---
1500 PATIENT HAD FRIENDS AT BEDSIDE AND ASKED IF HE COULD GO FOR A WALK AROUND THE FLOOR . PATIENT USED WALKED AND FRIEND PUSHED IV POLE . NURSE OBSERVED PATIENT AND HE APPEARED STEADY ON HIS FEET . NO DISTRESS NOTED .
--- NOTE | 2018-05-10 17:48 | NUR ---
PATIENT WAS SEEN BY BEAUTY CULTURIST APPRENTICE. DRESSING REMOVED AND REAPPLIED BY NURSE. WOUND CLINIC ADVISED BY DOCTOR UPON DISCHARGE. NO SIGNIFICANT CHANGES THIS SHIFT.
[2018-05-11 05:25] LABS: Prothrombin Time Results 40.4 Sec (9.7-11.5)
[2018-05-11 05:49] LABS: International Normalized Ratio 4.36
[2018-05-11 06:18] LABS: Albumin, Blood 4.1 g/dL (3.4-5.0); Anion Gap 14 mmol/L (6-16); Blood Urea Nitrogen 16 mg/dL (8-24); Bun/Creatinine Ratio 13.7 (12.0-20.0); CO2, Blood 26 mmol/L (21-32); Calcium, Blood 9.1 mg/dL (8.5-10.1); Chloride, Blood 98 mmol/L (98-108); Creatinine, Blood 1.17 mg/dL (0.60-1.20); Glomerular Filtration Rate >60 (60-); Glucose, Blood 150 mg/dL (70-99); Magnesium, Blood 1.7 mg/dL (1.6-2.4); Phosphorus, Blood 2.5 mg/dL (2.5-4.9); Potassium, Blood 2.8 mmol/L (3.5-5.5); Sodium, Blood 138 mmol/L (136-145)
--- NOTE | 2018-05-11 07:26 | NUR ---
Rn summary: Patient is alert and oriented. Pt continues to have dk green emisis. He had 400 at beginning of shift. This am pt had 1200 cc dk green emisis. Pt is NPO. Compazine 10 mg given x2 along with scheduled Zofran. Pt medicated for back pain with fentanyl 50mg x2. Pt has been able to rest between bouts of emisis. Patient states he would refuse an NG tube. Pt is independant to the BR. Waiting for transfer to [facility]. Call light in reach. Report to day shift RN.
--- NOTE | 2018-05-11 08:52 | NUR ---
PATIENT DID NOT EAT BREAKFAST THIS SHIFT DUE TO BEING NPO AT THIS TIME.
--- NOTE | 2018-05-11 15:13 | NUR ---
PATIENT DID NOT EAT LUNCH THIS SHIFT DUE TO BEING NPO AT THIS TIME.
--- NOTE | 2018-05-11 19:18 | NUR ---
DISCHARGE SUMMARY NEGRA WAS NAUSEOUS TODAY, GOT PRN AND SCHEDULED ANTEMETICS. GOT ONE DOSE OF IV [id number],. FRIEND CHAVEZ AT BEDSIDE MOST OF THE DAY. NPO EXCEPT PILLS. MIVF WITH K RUNNING, CLINIMIX STARTED. HAD DIFFICULTY SWALLOWING PILLS, HAD TO CUT IN HALF AND STILL HAD A LOT OF DIFFICULTY, POSSIBLY CRUSH FOR TOMORROWS PILLS. SBA TO BR. AWAITING BED AT [facility]
--- NOTE | 2018-05-11 20:12 | NUR ---
TRANSFER REPORT REPORT CALLED TO MENDOZA RAMSAY, AT [facility] AT 1935. PT INFORMED OF IMPENDING TRANSFER AND HOSPITAL LOCATION. CHARGE NURSE AND NURSING SUPERVISOR FILTER ASSEMBLY INFORMED.
--- NOTE | 2018-05-11 22:34 | NUR ---
DISCHARGE PT HAS BEEN DISCHARGED VIA [facility] TO [facility]. PT LEFT AT 2114.
== END 2018-05-11 21:20 | disposition short-term general hospital (02) | DRG 435 ==
LOC: ER 22:12 → MEDS 05-06 00:32
PROVIDERS: Emergency Medicine; Family Medicine; Internal Medicine; Pharmacist; ADMIT Internal Medicine
DX: C25.0 Malignant neoplasm of head of pancreas (principal); N17.0 Acute kidney failure with tubular necrosis; N17.9 Acute kidney failure, unspecified; E86.0 Dehydration; E87.6 Hypokalemia; Z21 Asymptomatic human immunodeficiency virus [HIV] infection status; I25.2 Old myocardial infarction; E78.5 Hyperlipidemia, unspecified; I25.10 Atherosclerotic heart disease of native coronary artery without angina pectoris; Z95.5 Presence of coronary angioplasty implant and graft; I48.0 Paroxysmal atrial fibrillation; I10 Essential (primary) hypertension; F17.210 Nicotine dependence, cigarettes, uncomplicated; K21.9 Gastro-esophageal reflux disease without esophagitis; J43.9 Emphysema, unspecified; K76.89 Other specified diseases of liver; Z99.81 Dependence on supplemental oxygen
CPT/HCPCS: 36415; 71045; 71260; 80048; 80053; 80069; 81001; 83690; 83735; 85014; 85018; 85025; 85027; 85610; 87086; 94664; 94667; 94760; 96361; 96374; 96375; 98960; 99284-25; 99407; C9113; J0780; J1650; J2405; J2550; J3010; J3475; J3480; J7030; J7042; J7120; Q9967